=== PATIENT | male | born 1945 | race Caucasian/White ===

== ENCOUNTER 2018-05-08 15:41 | Day surgery (SDC) | payer MEDICARE ==
[~2018-05-08 15:41] MED LIST: Bupivacaine 0.75% 10 ML AMP ONE; CEFAZOLIN 1 GM VIAL ONE; Lidocaine 1% PF 5 ML VIAL ONE; Lidocaine 4% PF 5 ML AMP ONE; Maxitrol 0.1% Opth Oint 3.5 GM TUBE ONE; PROPOFOL 200 MG/20 ML VIAL ONE; Triamcinolone 40 MG/ML VIAL ONE
[2018-05-08] MEDS ORDERED: Phenylephrine 2.5% Ophth Soln 5 ML BOT ONE (16:28)
[2018-05-08] MEDS ORDERED: Cyclopentolate 1% Opth Drop 2 ML BOT ONE (16:28)
[2018-05-08] MEDS ORDERED: Fluorouracil 100 MG, Enoxaparin Sodium 25 MG, EPINEPHrine 0.3 MG in Ophthalmic Irrigati... IVPB SCH (18:29)
[2018-05-08] MEDS ORDERED: Midazolam HCl 2 mg/2 ml Vial ONE (20:23)
[2018-05-08] MEDS ORDERED: Promethazine HCl 25 MG/ML VIAL IM PRN (21:26)
[2018-05-08] MEDS ORDERED: Ondansetron HCl/PF 4 MG/2 ML Vial IVP PRN (21:26)
[2018-05-08] MEDS ORDERED: Promethazine HCl 25 MG/ML VIAL SLOW IVP PRN (21:26)
[2018-05-08] MEDS ORDERED: Morphine Sulfate 2 MG/ML SYRINGE SLOW IVP PRN (21:26)
[2018-05-08] MEDS ORDERED: HYDROmorphone 2 MG/ML VIAL SLOW IVP PRN (21:26)
--- NOTE | 2018-05-09 01:12 | OP ---
DATE OF SURGERY: 05/08/2018 PREOPERATIVE DIAGNOSIS: Rhegmatogenous retinal detachment, left eye. POSTOPERATIVE DIAGNOSIS: Rhegmatogenous retinal detachment, left eye. PROCEDURE: Pars plana vitrectomy and retinal detachment repair, left eye. SURGEON: Edward Redmond MD ANESTHESIA: Local monitored anesthesia care. PROCEDURE IN DETAIL: The patient was identified in the preoperative holding area. Appropriate infor med consent for the planned surgical procedure on the left eye had been obtained. The patient was tr ansported to the operative suite where appropriate cardiopulmonary monitoring was established. Local anesthesia was obtained using retrobulbar and modified Van Lint lid block using 50:50 mixture of 4% lidocaine and 0.75% bupivacaine. The patient was prepped and draped in the usual sterile manner for ophthalmic surgery on the left eye. Lid speculum was placed in the left eye. 25-gauge trocars were placed in conjunctiva and sclera supratemporally, inferotemporally, and supranasally. Infusion line was placed inferotemporally. Light pipe and vitreous cutter were inserted into the eye. Core vitrec iman was performed. Attention was turned to the tear at the 2:30 o'clock position. Vitreous tractio n was removed from the tear and the tear was marked. Posterior drain retinotomy was created along th e 2 o'clock meridian. Complete air fluid exchange was performed with 10 minutes being allowed for fl uid to drain posteriorly. A 360 laser was placed using endolaser delivery device. A 28% sulfur hexa fluoride gas was infused into the eye. Supranasal sclerotomy was sutured closed. Retrobulbar Kenalo g and subconjunctival Ancef were placed. Atropine and antibiotic ointment were placed, and the eye w as patched and shielded. Patient was taken to the postoperative recovery unit in good condition veronica ruiz suffered no immediate perioperative complications. DISCHARGE INSTRUCTIONS: Patient was instructed to keep patch and shield on, position left side down, and follow up in the morning with Dr. Redmond.
== END 2018-05-08 22:32 | disposition home or self-care (01) ==
LOC: SDC 15:41
PROVIDERS: ATTEND Ophthalmology Retina Specialist
PROC: 08T53ZZ Resection of Left Vitreous, Percutaneous Approach (ICD-10-PCS; principal; 2018-05-08)
PROC: 08QF3ZZ Repair Left Retina, Percutaneous Approach (ICD-10-PCS; 2018-05-08)
DX: H33.012 Retinal detachment with single break, left eye (principal)
CPT/HCPCS: 67025; J0171; J0690; J1650; J2001; J2250; J2704; J3301; J3490; J9190

== ENCOUNTER 2020-12-09 15:18 | Outpatient (CLI) | payer MEDICARE | END 2020-12-09 15:19 | disposition home or self-care (01) | LOC: BICULT 15:18 | PROVIDERS: ATTEND Nurse Practitioner Family | DX: E04.1 Nontoxic single thyroid nodule (principal) | CPT/HCPCS: 76536 ==

== ENCOUNTER 2021-03-19 11:03 | Outpatient (CLI) | payer MEDICARE | END 2021-03-19 11:04 | disposition home or self-care (01) | LOC: BICRAD 11:03 | PROVIDERS: ATTEND Family Medicine | DX: R05 Cough (principal) | CPT/HCPCS: 71046 ==

== ENCOUNTER 2025-07-09 11:54 | Outpatient (CLI) | payer MEDICARE | END 2025-07-09 11:55 | disposition home or self-care (01) | LOC: BICRAD 11:54 | PROVIDERS: ATTEND Family Medicine | DX: M79.641 Pain in right hand (principal); M79.642 Pain in left hand ==